=== PATIENT | male | born 1980 | race Caucasian/White ===

== ENCOUNTER 2019-03-02 11:17 | Emergency (ER) | payer SELFPAY ==
[~2019-03-02] VITALS: Ht 175.3 cm; Wt 85.3 kg
[2019-03-02 11:28] VITALS: BP 130/79
== END 2019-03-02 12:34 | disposition home or self-care (01) ==
LOC: ED 11:17
DX: S20.211A Contusion of right front wall of thorax, initial encounter (principal); F17.200 Nicotine dependence, unspecified, uncomplicated; X58.XXXA Exposure to other specified factors, initial encounter; Y93.89 Activity, other specified; Y92.89 Other specified places as the place of occurrence of the external cause; Y99.8 Other external cause status
CPT/HCPCS: 99406